=== PATIENT | male | born 1955 | race Caucasian/White ===

== ENCOUNTER 2024-10-10 12:29 | Outpatient (CLI) | payer MEDICARE, SELFPAY ==
--- NOTE | 2024-10-10 12:33 | XR_ITS ---
FINAL REPORT CLINICAL HISTORY: .acute cough, MAN cough/wheezing x1w COMPARISON: None FINDINGS: Two views of the chest were obtained. The heart size and pulmonary vascularity are within normal limits. The mediastinum is normal. There are interstitial opacities seen bilaterally, favor scarring or fibrosis. There is bronchial wall thickening that may represent bronchitis. There is no pneumothorax. There is moderate degenerative change of the thoracic spine present. IMPRESSION: Bronchial wall thickening, may represent bronchitis. Interstitial opacities are seen bilaterally, favor scarring or fibrosis. Reviewed, Interpreted and Dictated by Claus Rodriguez III, MD Transcribed by Kaci Fournier [facility]henticated and [facility]
== END 2024-10-10 23:59 | disposition home or self-care (01) ==
LOC: RAD 12:30
PROVIDERS: PCP Nurse Practitioner Family; Visit Provider Nurse Practitioner Family
DX: J44.9 Chronic obstructive pulmonary disease, unspecified (principal)
CPT/HCPCS: 71046